=== PATIENT | female | born 1980 | race Caucasian/White ===

== ENCOUNTER 2019-05-01 04:45 | Emergency (ER) | payer MEDICAID ==
[~2019-05-01] VITALS: Ht 162.6 cm; Wt 70.3 kg
[~2019-05-01 04:45] MED LIST: ALPR1TAB2 OR; ARIP15TA6 OR; BENZ2TAB2 OR; QUET400T3 OR; TRAZ100T2 OR
[2019-05-01 05:02] VITALS: BP 157/95
[2019-05-01 05:30] LABS: Urine Bacteria FEW /hpf (None Seen); Urine Blood TRACE /uL (Negative); Urine Mucus FEW (None Seen); Urine Specific Gravity 1.024 (1.001-1.035); Urine WBC 54 /hpf (0 - 5)
[2019-05-01 05:41] LABS: Alcohol, Urine < 3.0 mg/dL (0-5); Amphetamine Screen, Urine POSITIVE (NEGATIVE); Barbiturate Scree,Urine NEGATIVE (NEGATIVE); Benzodiazephine Screen, Urine NEGATIVE (NEGATIVE); Cannabinoid Screen, Urine NEGATIVE (NEGATIVE); Cocaine Screen, Urine NEGATIVE (NEGATIVE); Opiate Scree,Urine NEGATIVE (NEGATIVE); Phencyclidine Screen, Urine NEGATIVE (NEGATIVE)
[2019-05-01] MEDS ORDERED: cefTRIAXone SOD 1,000 MG VL IM ONE (06:45)
[2019-05-01] MEDS ORDERED: KETOROLAC TROMETH 60MG/2ML VIAL IM ONE (06:45)
== END 2019-05-01 08:12 | disposition home or self-care (01) ==
LOC: ER 04:47
DX: S70.911A Unspecified superficial injury of right hip, initial encounter (principal); S70.922A Unspecified superficial injury of left thigh, initial encounter; S30.92XA Unspecified superficial injury of abdominal wall, initial encounter; W50.4XXA Accidental scratch by another person, initial encounter; Y93.89 Activity, other specified; Y92.89 Other specified places as the place of occurrence of the external cause; Y99.8 Other external cause status
CPT/HCPCS: 80307; 81001; 96372; 99283; J0696; J1885

== ENCOUNTER 2019-06-20 09:52 | Emergency (ER) | payer MEDICAID ==
[~2019-06-20] VITALS: Ht 162.6 cm; Wt 63.5 kg
[2019-06-20 10:00] VITALS: BP 132/94
[2019-06-20] MEDS ORDERED: IBUPROFEN 800 MG TAB PO ONE (11:45)
== END 2019-06-20 12:15 | disposition home or self-care (01) ==
LOC: ER 09:52
DX: L03.012 Cellulitis of left finger (principal); Z79.899 Other long term (current) drug therapy
CPT/HCPCS: 81002

== ENCOUNTER 2019-06-28 01:44 | Emergency (ER) | payer MEDICAID ==
[~2019-06-28] VITALS: Ht 162.6 cm; Wt 70.8 kg
[2019-06-28] MEDS ORDERED: cefTRIAXone W LIDOCAINE 1 GM IM IM ONE (07:15)
[2019-06-28] MEDS ORDERED: CLINDAMYCIN 600 MG/4 ML VL IM ONE (07:15)
[2019-06-28 07:45] VITALS: BP 132/85
[2019-06-28] MEDS ORDERED: KETOROLAC TROMETH 60MG/2ML VIAL IM ONE (08:15)
== END 2019-06-28 09:32 | disposition home or self-care (01) ==
LOC: ER 01:45
DX: L03.012 Cellulitis of left finger (principal)
CPT/HCPCS: 73120; 96372; 99283; J0696; J1885

== ENCOUNTER 2020-05-19 23:05 | Emergency (ER) | payer MEDICAID ==
[~2020-05-19] VITALS: Ht 162.6 cm; Wt 68.0 kg
[~2020-05-19 23:05] MED LIST changes: -TRAZ100T2 OR; +TRAZ100T3 OR
[2020-05-20 00:09] VITALS: BP 131/77
== END 2020-05-20 01:23 | disposition left against medical advice (07) ==
LOC: EDBD 23:05 → ER 23:12
DX: R07.81 Pleurodynia (principal); M54.2 Cervicalgia; Z53.21 Procedure and treatment not carried out due to patient leaving prior to being seen by health care provider

== ENCOUNTER 2020-10-13 01:55 | Emergency (ER) | payer MEDICAID ==
[~2020-10-13] VITALS: Ht 172.7 cm; Wt 68.0 kg
[~2020-10-13 01:55] MED LIST changes: -QUET400T3 OR; +QUET400T4 OR
[2020-10-13 04:31] VITALS: BP 150/93
== END 2020-10-13 05:42 | disposition home or self-care (01) ==
LOC: EDBD 01:55 → ER 01:56
DX: R03.0 Elevated blood-pressure reading, without diagnosis of hypertension (principal); F12.10 Cannabis abuse, uncomplicated; F15.10 Other stimulant abuse, uncomplicated; Z79.899 Other long term (current) drug therapy

== ENCOUNTER 2022-11-29 03:36 | Emergency (ER) | payer MEDICAID ==
[~2022-11-29] VITALS: Ht 162.6 cm; Wt 60.0 kg
[2022-11-29 03:36] VITALS: BP 143/65
[2022-11-29 05:46] LABS: Urine Bacteria FEW /hpf (None Seen); Urine Blood Negative /uL (Negative); Urine Mucus FEW (None Seen); Urine Specific Gravity 1.026 (1.001-1.035); Urine Sperm PRESENT /hpf (None Seen); Urine WBC 7 /hpf (0 - 5)
[2022-11-29] MEDS ORDERED: IBUP800T27 PO (05:54)
[2022-11-29] MEDS ORDERED: SULF800T7 PO (05:54)
[2022-11-29] MEDS ORDERED: KETOROLAC TROMETH 60MG/2ML VIAL IM ONE (06:00)
[2022-11-29] MEDS ORDERED: cefTRIAXone SOD 1,000 MG VL IM ONE (06:00)
== END 2022-11-29 06:40 | disposition home or self-care (01) ==
LOC: ER 03:36
DX: S39.012A Strain of muscle, fascia and tendon of lower back, initial encounter (principal); F12.10 Cannabis abuse, uncomplicated; F15.10 Other stimulant abuse, uncomplicated; N39.0 Urinary tract infection, site not specified; Z59.00 Homelessness unspecified; X58.XXXA Exposure to other specified factors, initial encounter; Y93.89 Activity, other specified; Y92.89 Other specified places as the place of occurrence of the external cause; Y99.8 Other external cause status
CPT/HCPCS: 81001; 96372; 99284; J0696; J1885

== ENCOUNTER 2022-12-01 05:59 | Emergency (ER) | payer MEDICAID ==
[~2022-12-01] VITALS: Ht 162.6 cm; Wt 54.5 kg
[~2022-12-01 05:59] MED LIST changes: +IBUP800T27 PO; +SULF800T7 PO
[2022-12-01 06:05] VITALS: BP 134/86
== END 2022-12-01 06:41 | disposition left against medical advice (07) ==
LOC: ER 05:59 → EDBD 05:59 → ER 06:41
DX: M54.50 Low back pain, unspecified (principal); Z53.21 Procedure and treatment not carried out due to patient leaving prior to being seen by health care provider

== ENCOUNTER 2023-08-08 22:37 | Emergency (ER) | payer MEDICAID ==
[~2023-08-08] VITALS: Ht 162.6 cm; Wt 63.0 kg
[2023-08-08 22:37] VITALS: BP 166/104; PULSE 81; RESP 18; O2SAT 99
[~2023-08-08 22:37] MED LIST changes: -BENZ2TAB2 OR; +BENZ2TAB50 OR; +IBUP-1456 PO; -IBUP800T27 PO; +SULF800T23 PO; -SULF800T7 PO; +TRAZ-228 OR; -TRAZ100T3 OR
[2023-08-09 00:01] LABS: Basophils # (auto) 0.1 10 ^3/uL (0-0.2); Eosinophils # (auto) 0.2 10 ^3/uL (0-0.8); Hemoglobin 11.2 g/dL (12.2-16.2); White Blood Cell 10.1 10^3/uL (4.4-10.8)
[2023-08-09 00:03] LABS: Basophils % (auto) 0.6 % (0.0-2.0); Eosinophils % (auto) 2.5 % (0.0-7.0); Hematocrit 35.2 % (36.0-46.0); Lymphocytes % (auto) 29.7 % (10.0-50.0); Mean Corpuscular Hemoglobin 26.5 pg (28.0-32.0); Mean Corpuscular Hgb Conc. 31.9 g/dL (32.0-36.0); Mean Corpuscular Volume 83.3 fL (80.0-100.0); Monocytes # (auto) 0.8 10 ^3/uL (0-1.3); Monocytes % (auto) 8.3 % (0.0-12.0); Neutrophils % (auto) 58.9 % (37.0-80.0); Red Blood Cells 4.22 10^6/uL (4.0-5.20); Red Cell Distribution Width 15.8 % (11.8-14.3)
[2023-08-09 00:09] LABS: Chloride 107 mmol/L (98-107); Potassium 3.9 mmol/L (3.5-5.1); Sodium 139 mmol/L (136-145)
[2023-08-09 00:10] LABS: Calcium 9.1 mg/dL (8.5-10.1)
[2023-08-09 00:15] LABS: BUN/Creatinine Ratio 10.3 (10.0-20.0); Blood Urea Nitrogen 6 mg/dL (9-23); Glucose 75 mg/dL (74-106)
[2023-08-09 00:17] LABS: Acetaminophen < 2.0 UG/ML (10.0-20.0)
[2023-08-09 00:18] LABS: Blood Alcohol < 3.0 mg/dL (<10)
[2023-08-09 00:26] LABS: Salicylate < 3.0 mg/dL (2.8-20.0)
[2023-08-09 00:52] LABS: Anion Gap 5 (5-15); Carbon Dioxide 27 mmol/L (20-30)
== END 2023-08-09 04:05 | disposition home or self-care (01) ==
LOC: ER 22:37
DX: R45.851 Suicidal ideations (principal); R10.2 Pelvic and perineal pain; Z59.00 Homelessness unspecified
CPT/HCPCS: 36415; 80048; 80320; 80329; 84702; 85025